=== PATIENT | male | born 1985 | race Caucasian/White ===

== ENCOUNTER 2023-11-10 00:27 | Inpatient (IN) | payer MEDICAID ==
[~2023-11-10] VITALS: Ht 180.3 cm; Wt 116.5 kg
[2023-11-10] VITALS (8 sets, daily range): BP systolic 118–144; BP diastolic 85–99; PULSE 57–116; RESP 14–23; TEMP 98.3–98.4; O2SAT 91–98
[~2023-11-10 00:27] MED LIST: LISI20TA56 PO
[2023-11-10 01:29] LABS: Alanine Aminotransferase 72 U/L (7-40); Alkaline Phosphatase 87 U/L (46-116); Calcium 9.3 mg/dL (8.7-10.4); Carbon Dioxide 28 mmol/L (20-30); Chloride 107 mmol/L (98-107)
[2023-11-10 01:30] LABS: Albumin 4.5 g/dL (3.2-4.8); Anion Gap 4 (5-15); Aspartate Aminotransferase 30 U/L (13-40); BUN/Creatinine Ratio 14.6 (10.0-20.0); Bilirubin, Total 0.5 mg/dL (0.2-1.0); Blood Urea Nitrogen 14 mg/dL (9-23); Glucose 104 mg/dL (74-106); Potassium 4.3 mmol/L (3.5-5.1); Sodium 139 mmol/L (136-145); Total Protein 7.4 g/dL (5.7-8.2)
[2023-11-10 01:36] LABS: Basophils # (auto) 0 10 ^3/uL (0-0.2); Basophils % (auto) 0.5 % (0.0-2.0); Eosinophils # (auto) 0.2 10 ^3/uL (0-0.8); Eosinophils % (auto) 2.1 % (0.0-7.0); Hematocrit 52.5 % (41.0-53.0); Hemoglobin 17.9 g/dL (13.5-17.5); Lymphocytes % (auto) 26.3 % (10.0-50.0); Mean Corpuscular Hemoglobin 30.9 pg (28.0-32.0); Mean Corpuscular Volume 90.8 fL (80.0-100.0); Monocytes # (auto) 0.9 10 ^3/uL (0-1.3); Neutrophils # (auto) 4.6 10 ^3/uL (1.6-8.6); Neutrophils % (auto) 60.1 % (37.0-80.0); Nucleated Red Blood Cells % 0.1 %; Red Blood Cells 5.77 10^6/uL (4.5-5.90); Red Cell Distribution Width 14.2 % (11.8-14.3); White Blood Cell 7.7 10^3/uL (4.4-10.8)
[2023-11-10 01:48] LABS: INR 0.98 (0.9-1.15); Partial Thromboplastin Time 27.3 SEC (24.5-34.5); Prothrombin Time 10.3 sec (9.3-11.8)
[2023-11-10] MEDS: NITROGLYCERIN 0.4 MG SL TAB SL ONE (02:19)
[2023-11-10] MEDS: ASPirin 81 mg TAB PO ONE (02:19)
[2023-11-10 05:47] LABS: Urine Bacteria NONE SEEN /hpf (None Seen); Urine Blood Negative /uL (Negative); Urine Clarity Clear (Clear); Urine Color Yellow (Yellow); Urine Protein, UAD Negative (Negative); Urine Specific Gravity 1.025 (1.001-1.035); Urine Urobilinogen Normal (Negative); Urine WBC <1 /hpf (0 - 3); Urine pH 5.5 (5.0-8.0)
[2023-11-10] MEDS: dilTIAZem 25 MG/5 ML VIAL IV ONE ×2 (06:20→07:48)
[2023-11-10] MEDS: SODIUM CHLORIDE 0.9% 1,000 ML IV ONE (06:20)
[2023-11-10] MEDS ORDERED: MORPHINE SULFATE INJ 2 MG/ml SYRG IV PRN (09:00)
[2023-11-10] MEDS ORDERED: ACETAMINOPHEN 325 MG TAB PO PRN (09:00)
[2023-11-10] MEDS: dilTIAZem 125mg/125ml BAG KIT 125 ML IV ONE (09:00)
[2023-11-10] MEDS ORDERED: NITROGLYCERIN 0.4 MG SL TAB SL PRN (09:00)
[2023-11-10 09:05] LABS: Triglycerides 123 mg/dL (< 150)
[2023-11-10 09:06] LABS: LDL Cholesterol 163 mg/dL (< 100)
[2023-11-10 09:07] LABS: Cholesterol 220 mg/dL (< 200); HDL Cholesterol 61 mg/dL (40-59)
[2023-11-10 09:10] LABS: Free T3 3.98 pg/mL (2.3-4.2)
[2023-11-10 10:13] LABS: Amphetamine Screen, Urine Neg (NEGATIVE); Barbiturate Scree,Urine Neg (NEGATIVE); Benzodiazephine Screen, Urine Neg (NEGATIVE)
[2023-11-10 10:14] LABS: Cannabinoid Screen, Urine Neg (NEGATIVE); Cocaine Screen, Urine Neg (NEGATIVE); Opiate Scree,Urine Neg (NEGATIVE); Phencyclidine Screen, Urine Neg (NEGATIVE)
[2023-11-10 11:16] LABS: COVID19 ANTIGEN SOFIA FIA NEGATIVE (NEGATIVE); Rapid Influenza A Negative (Negative); Rapid Influenza B Negative (Negative)
[2023-11-10] MEDS: ASPirin 81 mg TAB PO SCH (11:52)
[2023-11-10] MEDS: ENOXAPARIN SOD 40 MG/0.4 ML SYRINGE SC SCH (11:53)
[2023-11-10 12:40] LABS: Erythrocyte Sedimentation Rate 1 mm/hr (0-20)
[2023-11-10] MEDS: ENOXAPARIN SOD 120 MG/0.8 ML SYRINGE SC ONE (18:03)
[2023-11-10] MEDS: dilTIAZem 125mg/125ml BAG KIT 125 ML IV SCH (21:24)
[2023-11-11] VITALS (47 sets, daily range): BP systolic 88–150; BP diastolic 30–102; PULSE 62–136; RESP 8–33; TEMP 98.1–98.3; O2SAT 91–100
[2023-11-11 05:27] LABS: Basophils # (auto) 0 10 ^3/uL (0-0.2); Basophils % (auto) 0.5 % (0.0-2.0); Eosinophils # (auto) 0.1 10 ^3/uL (0-0.8); Eosinophils % (auto) 1.8 % (0.0-7.0); Hematocrit 53.3 % (41.0-53.0); Hemoglobin 18.3 g/dL (13.5-17.5); Lymphocytes # (auto) 2.6 10 ^3/uL (0.4-5.4); Lymphocytes % (auto) 34.6 % (10.0-50.0); Mean Corpuscular Hemoglobin 31.3 pg (28.0-32.0); Mean Corpuscular Hgb Conc. 34.3 g/dL (32.0-36.0); Mean Corpuscular Volume 91.3 fL (80.0-100.0); Monocytes # (auto) 0.7 10 ^3/uL (0-1.3); Monocytes % (auto) 9.1 % (0.0-12.0); Nucleated Red Blood Cells % 0.2 %; Red Blood Cells 5.84 10^6/uL (4.5-5.90); Red Cell Distribution Width 13.9 % (11.8-14.3); White Blood Cell 7.4 10^3/uL (4.4-10.8)
[2023-11-11 05:34] LABS: Alanine Aminotransferase 76 U/L (7-40); Albumin 4.7 g/dL (3.2-4.8); Alkaline Phosphatase 88 U/L (46-116); Anion Gap 5 (5-15); Aspartate Aminotransferase 38 U/L (13-40); Blood Urea Nitrogen 11 mg/dL (9-23); Calcium 9.8 mg/dL (8.5-10.1); Carbon Dioxide 29 mmol/L (20-30); Chloride 106 mmol/L (98-107); Glucose 104 mg/dL (74-106); Potassium 4.5 mmol/L (3.5-5.1); Sodium 140 mmol/L (136-145)
[2023-11-11 05:35] LABS: Bilirubin, Total 0.8 mg/dL (0.2-1.0); Total Protein 7.2 g/dL (5.7-8.2)
[2023-11-11] MEDS ORDERED: MIDAZOLAM HCL 2MG/2ML 2ml VIAL (1mg/ml) IM ONE (08:00)
[2023-11-11] MEDS ORDERED: fentaNYL CITRATE 100 MCG/2 ML VL IV ONE (08:00)
[2023-11-11] MEDS: fentaNYL CITRATE 100 MCG/2 ML VL IV ONE ×2 (09:00→09:38)
[2023-11-11] MEDS: LIDOCAINE VISCOUS 2% 15ML UD PO ONE (09:35)
[2023-11-11] MEDS: MIDAZOLAM HCL 2MG/2ML 2ml VIAL (1mg/ml) IV ONE ×2 (09:39→09:41)
[2023-11-11] MEDS ORDERED: METO25TA93 PO (10:20)
[2023-11-11] MEDS ORDERED: RIV20T PO (10:20)
[2023-11-11] MEDS: NALOXONE HCL 0.4 MG/ML VIAL IV ONE (11:45)
[2023-11-11] MEDS: FLUMAZENIL 0.1 MG/ML INJ 10ML MDV IV ONE (11:46)
[2023-11-11] MEDS: METOPROLOL SUCCINATE XL 50 MG TAB PO ONE (13:28)
[2023-11-11] MEDS: RIVAROXABAN 20 MG TAB PO SCH (16:55)
[2023-11-12] MEDS ORDERED: METOPROLOL SUCCINATE XL 50 MG TAB PO SCH (10:00)
== END 2023-11-11 17:05 | disposition home or self-care (01) | DRG 310 ==
LOC: ER 00:27 → DOU IN ICU 08:49 → TELE 08:49 → DOU IN ICU 22:37
PROVIDERS: ADMIT Nurse Practitioner Family; ATTEND Nurse Practitioner Acute Care
PROC: 5A2204Z Restoration of Cardiac Rhythm, Single (ICD-10-PCS; principal; 2023-11-11)
PROC: B24BZZ4 Ultrasonography of Heart with Aorta, Transesophageal (ICD-10-PCS; 2023-11-11)
DX: I48.91 Unspecified atrial fibrillation (principal); E66.01 Morbid (severe) obesity due to excess calories; E78.5 Hyperlipidemia, unspecified; I10 Essential (primary) hypertension; E11.9 Type 2 diabetes mellitus without complications; F10.90 Alcohol use, unspecified, uncomplicated; Z20.822 Contact with and (suspected) exposure to COVID-19; Z88.0 Allergy status to penicillin; Z68.35 Body mass index [BMI] 35.0-35.9, adult; Z82.49 Family history of ischemic heart disease and other diseases of the circulatory system; Z79.01 Long term (current) use of anticoagulants; Z79.899 Other long term (current) drug therapy
CPT/HCPCS: 36415; 71045; 71250; 80053; 80061; 80307; 81001; 83036; 83880; 84439; 84443; 84481; 84484; 85025; 85379; 85610; 85652; 85730; 86141; 87081; 87426; 87804; 93005; 93306; 93312; 99291; G0378; J2250